=== PATIENT | female | born 1990 | race Caucasian/White ===

== ENCOUNTER → 2023-05-18 12:43 | Outpatient (CLI) | payer OTHER, SELFPAY ==
--- NOTE | ~2023-05-18 | MM_ITS ---
EXAMINATION: MM diagnostic parth BI w mick HISTORY: Bilateral clear nipple discharge with stimulation TECHNIQUE: ML, MLO and CC 3-D tomosynthesis images of both breasts were performed and synthetic 2-D i mages were generated. CAD analysis was submitted and interpreted. COMPARISON: None BREAST PARENCHYMAL COMPOSITION: There are scattered areas of fibroglandular density. FINDINGS: No suspicious mass or architectural distortion, malignant calcification, skin thickening or retraction is detected. IMPRESSION: 1. No mammographic evidence of malignancy 2. Routine annual mammographic screening beginning at age 40 is recommended BI-RADS Category 1: Negative Reviewed, dictated and finalized at location A.
== END ==
PROVIDERS: PCP Nurse Practitioner Obstetrics & Gynecology; Visit Provider Nurse Practitioner Obstetrics & Gynecology
DX: N64.52 Nipple discharge (principal)
CPT/HCPCS: 77062; 77066; G0279